=== PATIENT | female | born 1970 | race Caucasian/White ===

== ENCOUNTER 2020-01-27 10:46 | Emergency (ER) | payer BC ==
[2020-01-27 10:55] VITALS: BP 122/96; PULSE 98
--- NOTE | 2020-01-27 11:25 | EDM.PDOC ---
ED HPI GENERAL MEDICAL PROBLEM - General Chief Complaint: Eye Problems Stated Complaint: R EYE COMPLAINT Time Seen by Provider: 01/27/20 11:00 Source of Information: Reports: Patient, RN Notes Reviewed - History of Present Illness INITIAL COMMENTS - FREE TEXT/NARRATIVE: 49 Yr old female comes in with R eye discomfort. She accidentally dropped a hot curling iron unto her face this morning about 2 or 3 hrs ago. She does have pain and irritated feeling to her R eye. She states her vision is blurry when she looks to the right. No other pain or injury. Right Eye Pain Score (Numeric/FACES): 5 - Related Data Allergies Allergy/AdvReac Type Severity Reaction Status Date / Time wilson Allergy Hives Verified 01/27/20 10:55 morphine Allergy Rash Verified 10/01/15 19:00 Home Meds: Home Meds Cyclobenzaprine [Flexeril] 10 mg PO TID 07/18/15 [History] Past Medical History - Past Health History Medical/Surgical History: Denies Medical/Surgical History Musculoskeletal History: Reports: Other (See Below) Other Musculoskeletal History: 2 back surgeries Social & Family History - Family History Family Medical History: No Pertinent Family History - Tobacco Use Tobacco Use Status *Q: Never Tobacco User - Recreational Drug Use Recreational Drug Use: No ED ROS GENERAL - Review of Systems Review Of Systems: See Below Constitutional: Reports: No Symptoms HEENT: Reports: Eye Pain Respiratory: Reports: No Symptoms Cardiovascular: Reports: No Symptoms GI/Abdominal: Reports: No Symptoms Musculoskeletal: Reports: No Symptoms Skin: Reports: No Symptoms Neurological: Reports: No Symptoms ED EXAM GENERAL W FULL EYE - Physical Exam Exam: See Below Eye Exam: Bilateral Eye: PERRL Visual Acuity (R) 20/: 20 Eyelids: Bilateral: Normal Appearance Conjunctiva & Sclera: Bilateral: Normal Appearance Cornea Exam: Bilateral: Cloudy Cornea (inferior area of cloudy, mildly manriquez discoloration from 6-8:00 area in a band distribution) Head: Atraumatic Neck: Supple Respiratory/Chest: No Respiratory Distress Extremities: Normal Inspection Skin Exam: Warm, Dry, Normal Color, Other (no visible burn injury to eye lids or any other part of her face). No: Erythema Course - Vital Signs Last Recorded V/S: Last Vital Signs Temp 98.4 F 01/27/20 10:52 Pulse 98 01/27/20 10:52 Resp 16 01/27/20 10:52 BP 122/96 H 01/27/20 10:52 Pulse Ox 100 01/27/20 10:52 - Re-Assessments/Exams Free Text/Narrative Re-Assessment/Exam: 01/27/20 15:42. Discussed with Dr Garcia, Opthamologist with [facility]. He agrees that follow up with her local Wet [facility] Operator tomorrow is a safe, reasonable plan. Does recomend starting her on Maxitrol or Tobradex eye drops. Discharge instr. as documented. Departure - Departure Time of Disposition: 12:03 Disposition: Home, Self-Care 01 Condition: Fair Clinical Impression: Corneal burn Qualifiers: Encounter type: initial encounter Laterality: right Qualified Code(s): T26.11XA - Burn of cornea and conjunctival sac, right eye, initial encounter - Discharge Information Instructions: Corneal Abrasion, [id number] Referrals: Aparna Suresh PA-C [Primary Care Provider] - Forms: ED Department Discharge Additional Instructions: Maxitrol Eye drops, 1 drop q 1 to 2 hr when awake, you may also alternate tylenol and ibuprofen as needed. See Dr Paige Christensen, [facility] Operator tomorrow for follow up. Call today for appointment. If unable to see Dr Christensen see one of the other Optometrists in town. Sepsis Event Note (ED) - Evaluation Sepsis Screening Result: No Definite Risk - Focused Exam Vital Signs: Vital Signs Temp Pulse Resp BP Pulse Ox 01/27/20 10:52 98.4 F 98 16 122/96 H 100
== END 2020-01-27 12:26 | disposition home or self-care (01) ==
LOC: JD.ED 10:46
DX: T26.11XA Burn of cornea and conjunctival sac, right eye, initial encounter (principal); Z88.5 Allergy status to narcotic agent; Z91.018 Allergy to other foods; X19.XXXA Contact with other heat and hot substances, initial encounter
CPT/HCPCS: 99283

== ENCOUNTER 2023-11-11 17:22 | Emergency (ER) | payer OTHER ==
[2023-11-11 17:38] VITALS: BP 131/104; PULSE 126
[2023-11-11] MEDS ORDERED: Sodium Chloride 0.9% 10 ML Syringe FLUSH PRN (18:05)
[2023-11-11] MEDS: cefTRIAXone 2 GM in Sodium Chloride 0.9% 100 ML IV ONE (18:24)
[2023-11-11 18:39] LABS: BASOPHILS ABSOLUTE AUTO 0.1 K/mm3 (0.0-0.2); BASOPHILS PERCENT AUTO 0.7 % (0.0-1.0); EOSINOPHILS PERCENT AUTO 0.1 % (0.0-6.0); HEMATOCRIT 36.9 % (37.0-47.0); HEMOGLOBIN 12.3 gm/dl (12.0-16.0); IMMATURE GRAN ABSOLUTE AUTO 0.01 K/mm3 (0.00-0.05); IMMATURE GRAN PERCENT AUTO 0.1 % (0.0-0.4); LYMPHOCYTES ABSOLUTE AUTO 1.4 K/mm3 (1.0-4.8); LYMPHOCYTES PERCENT AUTO 18.9 % (24.0-44.0); MEAN CORPUSCULAR HEMOGLOBIN 30.4 pg (28.0-32.0); MEAN CORPUSCULAR HGB CONC 33.3 g/dl (32.0-36.0); MEAN CORPUSCULAR VOLUME 91.3 fl (83.0-99.0); MONOCYTES ABSOLUTE AUTO 0.5 K/mm3 (0.0-0.8); MONOCYTES PERCENT AUTO 7.1 % (0.0-8.0); NEUTROPHILS ABSOLUTE AUTO 5.5 K/mm3 (1.8-7.7); NEUTROPHILS PERCENT AUTO 73.1 % (41.0-71.0); PLATELET COUNT,PLT 272 K/mm3 (150-400); RED BLOOD CELL COUNT 4.04 M/mm3 (4.10-5.30); WHITE BLOOD CELL COUNT,WBC 7.47 K/mm3 (3.9-11.3)
[2023-11-11 19:25] LABS: A/G RATIO 0.9 (1-2); ALBUMIN 3.4 g/dl (3.4-5.0); ANION GAP 14.6 (5-15); BILIRUBIN TOTAL 0.5 mg/dL (0.2-1.0); C-REACTIVE PROTEIN 4.44 mg/dL (<0.30); CALCIUM 8.8 mg/dL (8.5-10.1); EST CRCL DRUG DOSING (CG) 50.22 mL/min; POTASSIUM,K 3.6 mEq/L (3.5-5.1)
== END 2023-11-11 20:08 | disposition home or self-care (01) ==
LOC: JD.ED 17:22
DX: L03.114 Cellulitis of left upper limb (principal); Z79.899 Other long term (current) drug therapy; Z88.5 Allergy status to narcotic agent; Z91.018 Allergy to other foods
CPT/HCPCS: 36415; 73110; 80053; 85025; 86140; 96365; 99283; J0696; J3490